=== PATIENT | female | born 1985 | race Caucasian/White ===

== ENCOUNTER 2020-09-17 16:24 | Emergency (ER) | payer MEDICAID ==
[~2020-09-17] VITALS: Ht 170.2 cm; Wt 64.4 kg
[~2020-09-17 16:24] MED LIST: ACAM333T7 PO; ALPR0.25 PO; CITA10TA4 PO; CITA40TA12 PO; GABA-826 PO; LORA-445 PO; SERT50TA28 PO; TRAZ50TA66 PO
[2020-09-17 16:54] LABS: BASOPHILS % (AUTO) 0 % (0-1); EOSINOPHILS % (AUTO) 0 % (1-7); LYMPHOCYTES % (AUTO) 26 % (22-44); MEAN CORPUSCULAR HGB CONC 35.3 g/dL (32.4-35.8); MEAN PLATELET VOLUME 8.2 fL (7.4-10.4); MONOCYTES % (AUTO) 4 % (2-9); NEUTROPHILS % (AUTO) 69 % (42-75); PLATELET COUNT 322 x10^3/uL (130-400); RED BLOOD COUNT 4.99 x10^6/uL (3.82-5.3); RED CELL DISTRIBUTION WIDTH 12.9 % (9.6-15.2)
[2020-09-17 16:55] LABS: MD NO
[2020-09-17] MEDS ORDERED: SODIUM CHLORIDE FLUSH 10ML SYR IVF ONE (17:00)
[2020-09-17] MEDS ORDERED: SODIUM CHLORIDE 0.9% 1,000ML IVBOLUS ONE (17:00)
[2020-09-17 17:07] LABS: ALBUMIN 4.3 g/dL (3.4-5.0); ANION GAP 11 mmol/L (5-15); CALCIUM 8.2 mg/dL (8.5-10.1); CHLORIDE 103 mmol/L (98-107)
--- NOTE | 2020-09-17 17:10 | NUR ---
PT CRYING AND NERVOUS. ERP HAS EVALUATED PT. AWAITING ORDERS. PT COOPERATIVE AND FRIENDLY. WILL CONTINUE TO MONITOR. PT PLACED ON MONITORS.
[2020-09-17 17:13] LABS: ALANINE AMINOTRANSFERASE 27 U/L (12-78); ALKALINE PHOSPHATASE 56 U/L (45-117); BILIRUBIN,TOTAL 0.5 mg/dL (0.2-1.0); CREATININE 0.44 mg/dL (0.55-1.02); TOTAL PROTEIN 7.7 g/dL (6.4-8.2)
[2020-09-17 17:57] LABS: MICROSCOPIC INDICATED
--- NOTE | 2020-09-17 18:15 | NUR ---
PT IS RESTING CALMLY IN BED AT THIS TIME WITH EYES CLOSED.
--- NOTE | 2020-09-17 19:05 | NUR ---
REPORT FROM SALOMÓN WADE
--- NOTE | 2020-09-17 20:05 | NUR ---
PO CHALLENGE/ROAD TEST UNREMARKABLE REVIEWED IMPORTANCE OF SAFE ETOH DETOX- PATIENT NOT READY TO QUIT DRINKING YET
[2020-09-17 20:06] VITALS: BP 138/79
== END 2020-09-17 20:09 | disposition home or self-care (01) ==
LOC: ED 20:02
DX: F10.220 Alcohol dependence with intoxication, uncomplicated (principal); F41.1 Generalized anxiety disorder; Z72.9 Problem related to lifestyle, unspecified; R11.2 Nausea with vomiting, unspecified; F17.210 Nicotine dependence, cigarettes, uncomplicated; Y90.0 Blood alcohol level of less than 20 mg/100 ml
CPT/HCPCS: 36415; 80053; 80320; 81001; 83690; 84703; 85025; 87086; 96360; 96361; 99283; 99406; J7030; Q0177; G0480

== ENCOUNTER 2020-09-19 20:57 | Emergency (ER) | payer MEDICAID ==
[~2020-09-19] VITALS: Ht 177.8 cm; Wt 70.0 kg
--- NOTE | 2020-09-19 22:46 | NUR ---
Bib by ashley from home with mid left lower quadrant pain/right neck tenderness, significant amount of nausea and vomiting Heavy drinker -last drink 6 hours ago Ems administered 1000l of ns and 12.5 of phenergan
--- NOTE | 2020-09-19 22:58 | NUR ---
RECEIVED REPORT FROM MAURO RAMIREZ TO ASSUME CARE OF PT. AT THIS TIME.
[2020-09-19] MEDS ORDERED: MORPHINE SULFATE 4 MG/ML, 1ML ONE (23:00)
[2020-09-19] MEDS ORDERED: MORPHINE SULFATE 4 MG/ML, 1ML IVPush PRN (23:00)
[2020-09-19] MEDS ORDERED: SODIUM CHLORIDE 0.9% 1,000ML IVBOLUS ONE (23:00)
[2020-09-19] MEDS ORDERED: SODIUM CHLORIDE FLUSH 10ML SYR IVF ONE (23:00)
--- NOTE | 2020-09-19 23:09 | NUR ---
PT. MEDICATED PER MAR FOR REPORTED 10/10 CENTRAL ABD PAIN. IVF INFUSING PER ORDER. US AT BS FOR IMAGING AT THIS TIME.
--- NOTE | 2020-09-19 23:38 | NUR ---
PT. REPORTS FEELING SLIGHTLY BETTER AFTER [employer]NICIAN " LONG I DON'T MOVE". PT. AWARE OF NEED FOR UA BUT STATES UNABLE TO PROVIDE AT THIS TIME.
[2020-09-19] MEDS ORDERED: ONDANSETRON 2MG/ML, 2ML ONE (23:52)
--- NOTE | 2020-09-19 23:56 | NUR ---
PT. VOMITING; DISCUSSED WITH DR. MCDERMOTT. PT. MEDICATED PER JUL. PT. STATES ABD PAIN IS 02/11. VS UPDATED. PT. WITH 50CC OF BROWNISH EMESIS.
[2020-09-20] MEDS ORDERED: ONDANSETRON 2MG/ML, 2ML IVPush ONE
[2020-09-20] MEDS ORDERED: LORazepam 2 MG/ML, 1ML IVPush ONE
[2020-09-20 00:01] LABS: BASOPHILS % (AUTO) 0 % (0-1); EOSINOPHILS % (AUTO) 0 % (1-7); LYMPHOCYTES % (AUTO) 12 % (22-44); MEAN CORPUSCULAR HEMOGLOBIN 32.9 pg (27.0-34.8); MEAN CORPUSCULAR HGB CONC 34.6 g/dL (32.4-35.8); MEAN PLATELET VOLUME 8.4 fL (7.4-10.4); MONOCYTES % (AUTO) 4 % (2-9); NEUTROPHILS % (AUTO) 84 % (42-75); PLATELET COUNT 247 x10^3/uL (130-400); RED BLOOD COUNT 4.67 x10^6/uL (3.82-5.3); RED CELL DISTRIBUTION WIDTH 12.7 % (9.6-15.2)
[2020-09-20 00:03] LABS: MD NO
[2020-09-20 00:10] LABS: ALANINE AMINOTRANSFERASE 31 U/L (12-78); ALBUMIN 4.1 g/dL (3.4-5.0); ANION GAP 11 mmol/L (5-15); CALCIUM 7.9 mg/dL (8.5-10.1); CHLORIDE 103 mmol/L (98-107); CREATININE 0.41 mg/dL (0.55-1.02)
[2020-09-20 00:15] LABS: ALKALINE PHOSPHATASE 57 U/L (45-117); BILIRUBIN,TOTAL 0.6 mg/dL (0.2-1.0)
--- NOTE | 2020-09-20 00:46 | NUR ---
PT. AMBULATORY DOWN SERRANO TO WITH STEADY GAIT. ABLE TO PROVIDE URINE SAMPLE; SENT TO LAB. PT. BACK TO [facility]. NO FURTHER EPISODES OF EMESIS NOTED AFTER DELIVERY ANALYST.
[2020-09-20 00:58] LABS: MICROSCOPIC AUTO
[2020-09-20] MEDS ORDERED: PANTOPRAZOLE 40 MG IV IVPush ONE (01:30)
[2020-09-20] MEDS ORDERED: PANTOPRAZOLE 40 MG IV ONE (01:30)
[2020-09-20 01:36] VITALS: BP 131/94
== END 2020-09-20 01:45 | disposition home or self-care (01) ==
LOC: ED 22:50
DX: K29.20 Alcoholic gastritis without bleeding (principal); F10.10 Alcohol abuse, uncomplicated; R10.13 Epigastric pain; R11.2 Nausea with vomiting, unspecified; F17.200 Nicotine dependence, unspecified, uncomplicated; Y90.0 Blood alcohol level of less than 20 mg/100 ml
CPT/HCPCS: 36415; 76700; 80053; 81001; 83690; 84703; 85025; 87086; 96361; 96374; 96375; 99284; C9113; J2270; J2405; J7030